=== PATIENT | female | born 1935 | race Caucasian/White ===

== ENCOUNTER 2023-09-18 14:12 | Inpatient (IN) | payer OTHER ==
[~2023-09-18] VITALS: Ht 193 cm; Wt 70.1 kg
[2023-09-18 14:27] VITALS: BP_SYST 219; PULSE 82; RESP 22; TEMP 98.5; O2SAT 98
[2023-09-18 15:32] LABS: BASOPHILS % (AUTO) 0.5 % (0.0-2.0); EOSINOPHILS # (AUTO) 0.1 K/uL (0.0-0.4); EOSINOPHILS % (AUTO) 1.4 % (0.0-4.0); HEMATOCRIT 34.6 % (36-48); HEMOGLOBIN 11.5 g/dL (12.0-16.0); LYMPHOCYTES # (AUTO) 2.1 K/uL (1.0-5.5); LYMPHOCYTES % (AUTO) 25.8 % (20.5-51.5); MEAN CORPUSCULAR HEMOGLOBIN 28 pg (27-31); MEAN CORPUSCULAR HGB CONC 33 % (32-36); MEAN CORPUSCULAR VOLUME 83 fL (79.0-98.0); MONOCYTES # (AUTO) 0.7 K/uL (0.0-1.0); MONOCYTES % (AUTO) 8.9 % (1.7-9.3); NEUTROPHILS # (AUTO) 5.1 K/uL (1.8-7.7); NEUTROPHILS % (AUTO) 63.4 % (40.0-70.0); PLATELET COUNT (AUTO) 209 K/uL (130-430); RED BLOOD CELL COUNT(AUTO) 4.15 MIL/uL (4.2-6.2); RED CELL DISTRIBUTION WIDTH 15.4 % (9.0-15.0)
[2023-09-18] MEDS: cloNIDine HCL 0.1 MG TABLET PO ONE (15:41)
[2023-09-18 15:45] LABS: ANION GAP 8 (5-15); CALCIUM 9.3 mg/dL (8.4-11.0); CARBON DIOXIDE 26 mmol/L (23-29); CHLORIDE 109 mmol/L (98-107); CREATININE 1.67 mg/dL (0.55-1.30); GLUCOSE 111 mg/dL (74-106); POTASSIUM 4.2 mmol/L (3.5-5.1); SODIUM SERUM 143 mmol/L (136-145); UREA NITROGEN, BLOOD 35 mg/dL (8-21)
[2023-09-18] MEDS: hydrALAZINE HCL 20 MG/ML VIAL IVP ONE (15:57)
[2023-09-18 16:25] LABS: BILIRUBIN,URINE NEGATIVE (NEGATIVE); BLOOD, URINE 2+ (NEGATIVE); COLOR,URINE YELLOW (YELLOW); GLUCOSE,URINE 2+ (NEGATIVE); KETONES,URINE NEGATIVE (NEGATIVE); LEUKOCYTE ESTERASE ,URINE 3+ (NEGATIVE); NITRITE, URINE POSITIVE (NEGATIVE); PH,URINE 6.5 (5.0-8.0); PROTEIN URINE NEGATIVE (NEGATIVE); UROBILINOGEN,URINE 0.2 (0.2-1.0)
[2023-09-18 16:26] LABS: CLARITY/URINE HAZY (CLEAR)
[2023-09-18 16:34] LABS: BACTERIA,URINE MODERATE /HPF (None Seen); MUCUS,URINE None Seen /LPF (None Seen); RBC,URINE 0-3 /HPF (0-3); WBC,URINE 20-50 /HPF (0-3)
[2023-09-18] MEDS ORDERED: cefTRIAXone 1 GM VIAL ONE (17:13)
[2023-09-18] MEDS: cefTRIAXone 1 GM in D5W 50 ML IV ONE (17:24)
[2023-09-18] MEDS ORDERED: HYDROcodone/ACETAMIN 5-325 MG TAB (NORCO/ VICODIN) PO PRN (17:45)
[2023-09-18] MEDS ORDERED: MORPHINE 2 MG/ML INJ. SYRINGE IVP PRN (17:45)
[2023-09-18] MEDS ORDERED: ONDANSETRON HCL 4 MG/2 ML VIAL IVP PRN (17:45)
[2023-09-18] MEDS ORDERED: ALBUTEROL SULFATE 0.083% 2.5 MG/3 ML VIAL.NEB INH PRN (17:45)
[2023-09-18 18:00] VITALS: PULSE 63; O2SAT 98
[2023-09-18] MEDS: NACL 0.9% 1,000 ML IV ONE (18:58)
[2023-09-18] MEDS ORDERED: LISI20TA30 PO (21:05)
[2023-09-18] MEDS ORDERED: DAPA10TA PO (21:05)
[2023-09-18] MEDS ORDERED: LEVO75TA7 PO (21:05)
[2023-09-18] MEDS ORDERED: LOVA20TA2 PO (21:05)
[2023-09-18] MEDS ORDERED: NEU300 (21:05)
[2023-09-18] MEDS ORDERED: FURO20TA4 PO (21:06)
[2023-09-18] MEDS ORDERED: gabapentin (21:06)
[2023-09-18 21:40] VITALS: BP_SYST 211; PULSE 95; RESP 18; TEMP 98.6
[2023-09-18] MEDS: hydrALAZINE HCL 20 MG/ML VIAL IVP PRN (21:49)
[2023-09-19] VITALS: BP_SYST 156; PULSE 76; RESP 17; TEMP 98.5; O2SAT 98
[2023-09-19 05:30] LABS: BASOPHILS % (AUTO) 0.4 % (0.0-2.0); EOSINOPHILS % (AUTO) 0.2 % (0.0-4.0); HEMATOCRIT 34.1 % (36-48); HEMOGLOBIN 11.2 g/dL (12.0-16.0); LYMPHOCYTES # (AUTO) 1.5 K/uL (1.0-5.5); LYMPHOCYTES % (AUTO) 15.9 % (20.5-51.5); MEAN CORPUSCULAR HEMOGLOBIN 28 pg (27-31); MEAN CORPUSCULAR HGB CONC 33 % (32-36); MEAN CORPUSCULAR VOLUME 84 fL (79.0-98.0); MONOCYTES # (AUTO) 0.5 K/uL (0.0-1.0); MONOCYTES % (AUTO) 5.2 % (1.7-9.3); NEUTROPHILS # (AUTO) 7.2 K/uL (1.8-7.7); NEUTROPHILS % (AUTO) 78.3 % (40.0-70.0); PLATELET COUNT (AUTO) 215 K/uL (130-430); RED BLOOD CELL COUNT(AUTO) 4.06 MIL/uL (4.2-6.2); RED CELL DISTRIBUTION WIDTH 15.3 % (9.0-15.0); WHITE BLOOD COUNT (AUTO) 9.2 K/uL (4.8-10.8)
[2023-09-19 06:02] LABS: ALANINE AMINOTRANSFERASE 7 U/L (12-78); ALBUMIN 2.7 g/dL (3.4-4.8); ANION GAP 11 (5-15); ASPARTATE AMINOTRANSFERASE 8 U/L (10-37); CALCIUM 8.8 mg/dL (8.4-11.0); CARBON DIOXIDE 24 mmol/L (23-29); CHLORIDE 110 mmol/L (98-107); CREATININE 1.44 mg/dL (0.55-1.30); GLUCOSE 119 mg/dL (74-106); POTASSIUM 4.3 mmol/L (3.5-5.1); SODIUM SERUM 145 mmol/L (136-145); TOTAL BILIRUBIN 0.4 mg/dL (0.0-1.0); TOTAL PROTEIN, SERUM 6.2 g/dL (6.4-8.3); UREA NITROGEN, BLOOD 26 mg/dL (8-21)
[2023-09-19 08:00] VITALS: BP_SYST 144; PULSE 83; RESP 16; TEMP 99; O2SAT 97
[2023-09-19] MEDS ORDERED: cefTRIAXone 1 GM IVPB PREMIX 50 ML IV SCH (09:00)
[2023-09-19 09:22] VITALS: O2SAT 96
[2023-09-19 11:02] VITALS: BP_SYST 156; PULSE 58; RESP 18; TEMP 98.4; O2SAT 97
[2023-09-19] MEDS: NACL 0.9% 1,000 ML IV ONE (11:02)
[2023-09-19] MEDS: ATORVASTATIN 10 MG TABLET PO ONE (11:03)
[2023-09-19] MEDS: NIFEdipine 30 MG TAB.ER.24 PO ONE (11:03)
[2023-09-19] MEDS: LEVOTHYROXINE SODIUM 0.075 MG TABLET PO ONE (11:03)
[2023-09-19] MEDS: cefTRIAXone 1 GM IVPB PREMIX 50 ML IV SCH (11:04)
[2023-09-19 16:58] VITALS: BP_SYST 153; PULSE 58; RESP 18; TEMP 98.8; O2SAT 97
[2023-09-19 20:00] VITALS: BP_SYST 154; PULSE 71; RESP 18; TEMP 98.5; O2SAT 98
[2023-09-19] MEDS: NIFEdipine 30 MG TAB.ER.24 PO SCH (20:32)
[2023-09-20] VITALS: BP_SYST 146; PULSE 70; RESP 17; TEMP 98.8; O2SAT 96
[2023-09-20] MEDS: HYDROcodone/ACETAMIN 10-325 MG TAB PO PRN (00:51)
[2023-09-20] MEDS: LEVOTHYROXINE SODIUM 0.075 MG TABLET PO SCH (06:22)
[2023-09-20 07:14] LABS: ALANINE AMINOTRANSFERASE 10 U/L (12-78); ALBUMIN 2.8 g/dL (3.4-4.8); ANION GAP 11 (5-15); CARBON DIOXIDE 23 mmol/L (23-29); CHLORIDE 108 mmol/L (98-107); CREATININE 1.63 mg/dL (0.55-1.30); GLUCOSE 103 mg/dL (74-106); POTASSIUM 4.2 mmol/L (3.5-5.1); SODIUM SERUM 142 mmol/L (136-145); TOTAL BILIRUBIN 0.4 mg/dL (0.0-1.0); TOTAL PROTEIN, SERUM 6.7 g/dL (6.4-8.3); UREA NITROGEN, BLOOD 24 mg/dL (8-21)
[2023-09-20 07:31] LABS: ASPARTATE AMINOTRANSFERASE 18 U/L (10-37)
[2023-09-20 07:36] LABS: BASOPHILS % (AUTO) 0.5 % (0.0-2.0); EOSINOPHILS # (AUTO) 0.2 K/uL (0.0-0.4); EOSINOPHILS % (AUTO) 2.1 % (0.0-4.0); HEMATOCRIT 33.5 % (36-48); HEMOGLOBIN 11.1 g/dL (12.0-16.0); LYMPHOCYTES # (AUTO) 2.5 K/uL (1.0-5.5); LYMPHOCYTES % (AUTO) 29.5 % (20.5-51.5); MEAN CORPUSCULAR HEMOGLOBIN 28 pg (27-31); MEAN CORPUSCULAR HGB CONC 33 % (32-36); MEAN CORPUSCULAR VOLUME 84 fL (79.0-98.0); MONOCYTES # (AUTO) 0.6 K/uL (0.0-1.0); MONOCYTES % (AUTO) 7.7 % (1.7-9.3); NEUTROPHILS % (AUTO) 60.2 % (40.0-70.0); PLATELET COUNT (AUTO) 222 K/uL (130-430); RED CELL DISTRIBUTION WIDTH 14.8 % (9.0-15.0); WHITE BLOOD COUNT (AUTO) 8.4 K/uL (4.8-10.8)
[2023-09-20 08:00] VITALS: BP_SYST 168; PULSE 64; RESP 16; TEMP 98.1; O2SAT 98
[2023-09-20] MEDS: ATORVASTATIN 10 MG TABLET PO SCH (09:19)
[2023-09-20 12:26] VITALS: BP_SYST 144; PULSE 66; RESP 16; TEMP 98.3; O2SAT 97
[2023-09-20 16:20] VITALS: BP_SYST 147; PULSE 73; RESP 18; TEMP 99.7; O2SAT 97
[2023-09-20 20:00] VITALS: BP_SYST 170; PULSE 77; RESP 18; TEMP 99.5; O2SAT 95
[2023-09-20] MEDS: NACL 0.9% 1,000 ML IV SCH (20:08)
[2023-09-20] MEDS: INDOMETHACIN 25 MG CAPSULE(INDOCIN) PO PRN (22:09)
[2023-09-21] VITALS (7 sets, daily range): BP systolic 135–169; PULSE 64–84; RESP 16–18; TEMP 97.1–98.8; O2SAT 96–98
[2023-09-21 04:15] LABS: COVID19 ANTIGEN SOFIA FIA NEGATIVE (NEGATIVE)
[2023-09-21 04:18] LABS: ALANINE AMINOTRANSFERASE 9 U/L (12-78); ALBUMIN 2.5 g/dL (3.4-4.8); ANION GAP 11 (5-15); ASPARTATE AMINOTRANSFERASE 8 U/L (10-37); CALCIUM 8.7 mg/dL (8.4-11.0); CARBON DIOXIDE 23 mmol/L (23-29); CHLORIDE 107 mmol/L (98-107); GLUCOSE 147 mg/dL (74-106); SODIUM SERUM 141 mmol/L (136-145); TOTAL BILIRUBIN 0.3 mg/dL (0.0-1.0); TOTAL PROTEIN, SERUM 6.3 g/dL (6.4-8.3); UREA NITROGEN, BLOOD 21 mg/dL (8-21)
[2023-09-21 04:42] LABS: BASOPHILS % (AUTO) 0.4 % (0.0-2.0); EOSINOPHILS % (AUTO) 0.3 % (0.0-4.0); HEMATOCRIT 31.9 % (36-48); HEMOGLOBIN 10.7 g/dL (12.0-16.0); LYMPHOCYTES # (AUTO) 1.4 K/uL (1.0-5.5); LYMPHOCYTES % (AUTO) 15.1 % (20.5-51.5); MEAN CORPUSCULAR HEMOGLOBIN 28 pg (27-31); MEAN CORPUSCULAR HGB CONC 34 % (32-36); MEAN CORPUSCULAR VOLUME 82 fL (79.0-98.0); MONOCYTES # (AUTO) 0.6 K/uL (0.0-1.0); MONOCYTES % (AUTO) 6.8 % (1.7-9.3); NEUTROPHILS # (AUTO) 6.9 K/uL (1.8-7.7); NEUTROPHILS % (AUTO) 77.4 % (40.0-70.0); PLATELET COUNT (AUTO) 212 K/uL (130-430); RED BLOOD CELL COUNT(AUTO) 3.87 MIL/uL (4.2-6.2); RED CELL DISTRIBUTION WIDTH 15.2 % (9.0-15.0)
[2023-09-21 04:56] LABS: INFLUENZA TYPE A Negative (NEGATIVE); INFLUENZA TYPE B NEGATIVE (NEGATIVE)
[2023-09-21] MEDS: POLYETHYLENE GLYCOL 3350, 17 GM/ POWD.PACK PO SCH (10:05)
[2023-09-21] MEDS: BISACODYL 10 MG/SUPPOSITORY RC ONE (10:05)
[2023-09-21] MEDS: NIFEdipine 30 MG TAB.ER.24 PO ONE (18:14)
[2023-09-21] MEDS: ASPIRIN 81 MG TABLET(ECOTRIN) PO ONE (18:14)
[2023-09-21] MEDS: CARVEDILOL 6.25 MG TABLET (COREG) PO ONE (18:14)
[2023-09-21] MEDS: CARVEDILOL 6.25 MG TABLET (COREG) PO SCH (21:30)
[2023-09-22] VITALS: BP_SYST 145; PULSE 61; RESP 16; TEMP 97.7; O2SAT 95
[2023-09-22 04:42] LABS: BASOPHILS % (AUTO) 0.5 % (0.0-2.0); EOSINOPHILS # (AUTO) 0.2 K/uL (0.0-0.4); EOSINOPHILS % (AUTO) 2.1 % (0.0-4.0); HEMATOCRIT 32.8 % (36-48); LYMPHOCYTES # (AUTO) 1.4 K/uL (1.0-5.5); MEAN CORPUSCULAR HEMOGLOBIN 28 pg (27-31); MEAN CORPUSCULAR HGB CONC 34 % (32-36); MEAN CORPUSCULAR VOLUME 82 fL (79.0-98.0); MONOCYTES # (AUTO) 0.5 K/uL (0.0-1.0); MONOCYTES % (AUTO) 6.7 % (1.7-9.3); NEUTROPHILS # (AUTO) 5.5 K/uL (1.8-7.7); NEUTROPHILS % (AUTO) 72.7 % (40.0-70.0); PLATELET COUNT (AUTO) 207 K/uL (130-430); RED BLOOD CELL COUNT(AUTO) 3.99 MIL/uL (4.2-6.2); RED CELL DISTRIBUTION WIDTH 15.5 % (9.0-15.0); WHITE BLOOD COUNT (AUTO) 7.6 K/uL (4.8-10.8)
[2023-09-22 05:00] LABS: ERYTHROCYTE SEDIMENTATION RATE 41 MM/HR (0-20)
[2023-09-22 05:06] LABS: ANION GAP 11 (5-15); CALCIUM 8.8 mg/dL (8.4-11.0); CARBON DIOXIDE 23 mmol/L (23-29); CHLORIDE 108 mmol/L (98-107); CREATININE 1.42 mg/dL (0.55-1.30); GLUCOSE 114 mg/dL (74-106); PHOSPHORUS 3.1 mg/dL (2.7-4.5); POTASSIUM 4.1 mmol/L (3.5-5.1); SODIUM SERUM 142 mmol/L (136-145); UREA NITROGEN, BLOOD 23 mg/dL (8-21)
[2023-09-22 08:39] VITALS: BP_SYST 150; PULSE 71; RESP 18; TEMP 98.5
[2023-09-22] MEDS: NIFEDIPINE 90 MG TABLET.SA (PROCARDIA XL 90 MG) PO SCH (09:16)
[2023-09-22] MEDS ORDERED: NIFE90TA24 PO (09:33)
[2023-09-22] MEDS ORDERED: COR6.25 PO (09:33)
[2023-09-22] MEDS ORDERED: LEVO250T73 PO (09:33)
[2023-09-22] MEDS: ACETAMINOPHEN 325 MG TABLET PO PRN (10:33)
[2023-09-22 13:17] VITALS: BP_SYST 123; PULSE 67; RESP 18; TEMP 98.1; O2SAT 97
== END 2023-09-22 14:15 | DRG 871 ==
LOC: SED 14:12 → STU 17:37 → SMU 09-20 13:17
PROVIDERS: ADMIT Family Medicine; ATTEND Family Medicine
DX: A41.9 Sepsis, unspecified organism (principal); E43 Unspecified severe protein-calorie malnutrition; N17.0 Acute kidney failure with tubular necrosis; N39.0 Urinary tract infection, site not specified; I16.1 Hypertensive emergency; Z68.1 Body mass index [BMI] 19.9 or less, adult; E88.09 Other disorders of plasma-protein metabolism, not elsewhere classified; Z20.822 Contact with and (suspected) exposure to COVID-19; B96.89 Other specified bacterial agents as the cause of diseases classified elsewhere; D64.9 Anemia, unspecified; I25.10 Atherosclerotic heart disease of native coronary artery without angina pectoris; E03.9 Hypothyroidism, unspecified; I12.9 Hypertensive chronic kidney disease with stage 1 through stage 4 chronic kidney disease, or unspecified chronic kidney disease; N18.30 Chronic kidney disease, stage 3 unspecified; E78.5 Hyperlipidemia, unspecified; Z79.899 Other long term (current) drug therapy; Z95.5 Presence of coronary angioplasty implant and graft
CPT/HCPCS: 36415; 71045; 80048; 80053; 81000; 81001; 81015; 83037; 83735; 84100; 84484; 84550; 85025; 85651; 87040; 87086; 87186; 94070; 94760; 96361; 96365; 96375; 97110-GP; 97116-GP; 97530-GP; 99291; G0378; J0360; J0696